=== PATIENT | female | born 1950 | race Hispanic/Latino ===

== ENCOUNTER 2018-01-07 13:16 | Emergency (ER) | payer MEDICARE ==
[~2018-01-07] VITALS: Ht 165.1 cm; Wt 89.4 kg
[2018-01-07] MEDS ORDERED: KETOROLAC TROMETHAMINE 60 MG/2 ML VIAL IM ONE (14:00)
[2018-01-07] MEDS ORDERED: CLONIDINE HCL 0.2 MG TAB PO ONE (14:00)
[2018-01-07 14:45] LABS: CLARITY,URINE SL CLOUDY (CLEAR); COLOR,URINE YELLOW (YELLOW); KETONES,URINE NEGATIVE (NEGATIVE); LEUKOCYTE ESTERASE ,URINE NEGATIVE (NEGATIVE); NITRITE,URINE NEGATIVE (NEGATIVE); PROTEIN,URINE DIPSTICK NEGATIVE (NEGATIVE)
[2018-01-07 14:46] LABS: BILIRUBIN,URINE NEGATIVE (NEGATIVE); URINE UROBILINOGEN 1 mg/dL (0.2 - 1)
--- NOTE | 2018-01-07 14:47 | Diagnostic Imaging Report ---
PROCEDURE:L-SPINE 3V COMPARISON:None. INDICATIONS:LOW BACK PAIN 1 WEEK FINDINGS: There are 5 lumbar-type vertebral bodies. Generalized osteopenia. Degenerative disc changes in the lumbar spine predominantly at L5-S1, with intervertebral disc space narrowing and osteophytosis. Grade 1 anterolisthesis of L4 on L5. Anterior wedge deformity of the T12 vertebral body, with approximate height loss of 35%. Facet hypertrophy L3 through S1. There are no acute, displaced fractures, lytic or blastic lesions. Degenerative changes in bilateral sacroiliac joints. CONCLUSION: 1. 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 Grade 1 anterolisthesis of L4 on L5. 2. No acute abnormalities. 3. Age indeterminate compression deformity of the T12 vertebral body. Fredrick Wilson M.D. Dictated by: Fredrick Wilson M.D. on 01/07/2018 at 14:51 Electronically approved by: Fredrick Wilson M.D. on 01/07/2018 at 14:51
[2018-01-07 14:56] LABS: BACTERIA,URINE RARE /HPF; EPITHELIAL CELLS,URINE FEW /LPF; WBC,URINE (MAN) 0-5 /HPF (0-5)
[2018-01-07 15:52] VITALS: BP 130/78
== END 2018-01-07 15:56 | disposition home or self-care (01) ==
LOC: ER 13:16
DX: M54.6 Pain in thoracic spine (principal); M54.5 Low back pain; X50.0XXA Overexertion from strenuous movement or load, initial encounter; I10 Essential (primary) hypertension
CPT/HCPCS: 72100; 81001; 99284; J1885

== ENCOUNTER 2018-01-24 13:10 | Emergency (ER) | payer MEDICARE ==
[~2018-01-24] VITALS: Ht 165.1 cm; Wt 89.4 kg
[2018-01-24] MEDS ORDERED: NIFEDIPINE 10 MG CAP PO STA (13:47)
[2018-01-24] MEDS ORDERED: KETOROLAC TROMETHAMINE 30 MG/ML VIAL IV STA (13:47)
[2018-01-24] MEDS ORDERED: DIAZEPAM 2 MG TAB PO ONE (14:00)
[2018-01-24 14:18] LABS: BASOPHILS # (AUTO) 0.1 (0.0-0.1); BASOPHILS % 0.6 % (0.0-1.0); EOSINOPHILS # (AUTO) 0.1 (0.0-0.4); EOSINOPHILS % 1.5 % (0.0-6.0); HEMATOCRIT 39.1 % (34.2-44.1); LYMPHOCYTES # (AUTO) 1.8 (1.0-3.2); LYMPHOCYTES % 20.6 % (18.0-39.1); MEAN CORPUSCULAR HGB CONC 33.2 g/dL (31-35); MEAN CORPUSCULAR VOLUME 90.3 fL (81-99); MONOCYTES # (AUTO) 0.6 (0.2-0.8); MONOCYTES % 7.1 % (4.4-11.3); NEUTROPHILS # (AUTO) 5.9 (2.1-6.9); NEUTROPHILS % 69.7 % (38.7-80.0); PLATELET COUNT 235 x10e3/uL (140-360); RED BLOOD COUNT 4.33 x10e6/uL (3.6-5.1); RED CELL DISTRIBUTION WIDTH 12.5 % (11.7-14.4)
[2018-01-24 14:39] LABS: BILIRUBIN,URINE NEGATIVE (NEGATIVE); CLARITY,URINE CLEAR (CLEAR); COLOR,URINE YELLOW (YELLOW); KETONES,URINE NEGATIVE (NEGATIVE); LEUKOCYTE ESTERASE ,URINE NEGATIVE (NEGATIVE); NITRITE,URINE NEGATIVE (NEGATIVE); PROTEIN,URINE DIPSTICK NEGATIVE (NEGATIVE); URINE UROBILINOGEN 0.2 mg/dL (0.2 - 1)
[2018-01-24 14:39] LABS: ANION GAP 14.4 mmol/L (8-16); BLOOD UREA NITROGEN 24 mg/dL (7-26); BUN/CREATININE RATIO 34 (6-25); CALCIUM 9.7 mg/dL (8.4-10.2); CARBON DIOXIDE 27 mmol/L (22-29); CHLORIDE 105 mmol/L (98-107); CREATINE KINASE 891 IU/L (29-168); EST GLOMERULAR FILTRATION RATE > 60 ML/MIN (60-); GLUCOSE 98 mg/dL (74-118); POTASSIUM 4.4 mmol/L (3.5-5.1); SODIUM 142 mmol/L (136-145)
[2018-01-24 14:47] LABS: BACTERIA,URINE RARE /HPF; EPITHELIAL CELLS,URINE FEW /LPF; MUCUS,URINE MODERATE (RARE)
== END 2018-01-24 16:07 | disposition home or self-care (01) ==
LOC: ER 13:10
DX: M54.5 Low back pain (principal); S39.012A Strain of muscle, fascia and tendon of lower back, initial encounter; M43.16 Spondylolisthesis, lumbar region; M43.14 Spondylolisthesis, thoracic region; I10 Essential (primary) hypertension
CPT/HCPCS: 36415; 80048; 81001; 82550; 82553; 84484; 85025; 93005; 99284; J1885

== ENCOUNTER 2021-04-13 16:53 | Emergency (ER) | payer MEDICARE, OTHER ==
[~2021-04-13] VITALS: Ht 165.1 cm; Wt 89.4 kg
[2021-04-13] MEDS ORDERED: CLONIDINE HCL 0.1 MG TAB PO ONE (17:30)
[2021-04-13 18:38] VITALS: BP 164/78
== END 2021-04-13 18:41 | disposition home or self-care (01) ==
LOC: ER 17:31
DX: S00.83XA Contusion of other part of head, initial encounter (principal); W01.0XXA Fall on same level from slipping, tripping and stumbling without subsequent striking against object, initial encounter; Y93.01 Activity, walking, marching and hiking; Y92.480 Sidewalk as the place of occurrence of the external cause; I10 Essential (primary) hypertension; E78.5 Hyperlipidemia, unspecified; K21.9 Gastro-esophageal reflux disease without esophagitis; M54.9 Dorsalgia, unspecified; G89.29 Other chronic pain
CPT/HCPCS: 70450; 70486; 72125; 99283